=== PATIENT | female | born 1970 | race Asian ===

== ENCOUNTER → 2018-10-20 | Outpatient (CLI) | payer OTHER ==
[2018-10-22 18:21] LABS: QUANTIFERON+, Nil Value 0.03 IU/mL; QUANTIFERON+,Mitogen Value >10.00 IU/mL; QUANTIFERON+,TB1 Antigen Value 0.03 IU/mL; QUANTIFERON+,TB2 Antigen Value 0.02 IU/mL; QUANTIFERON, TB GOLD PLUS Negative (Negative)
== END | disposition home or self-care (01) ==
LOC: LABPV 11:23
PROVIDERS: ATTEND Family Medicine
DX: Z02.89 Encounter for other administrative examinations (principal)
CPT/HCPCS: 86480; 86592; 87491; 87591